=== PATIENT | female | born 1995 | race Two or more races ===

== ENCOUNTER 2021-12-22 15:05 | Emergency (ER) | payer OTHER ==
[~2021-12-22] VITALS: Ht 160 cm; Wt 54.4 kg
[2021-12-22] MEDS ORDERED: NITROFURANTOIN100 MG PO (19:35)
== END 2021-12-22 19:50 | disposition home or self-care (01) ==
LOC: ER 15:05
DX: N39.0 Urinary tract infection, site not specified (principal); Z20.822 Contact with and (suspected) exposure to COVID-19

== ENCOUNTER 2023-02-05 19:07 | Emergency (ER) | payer OTHER ==
[~2023-02-05] VITALS: Ht 160 cm; Wt 54.4 kg
[~2023-02-05 19:07] MED LIST: NITROFURANTOIN100 MG PO
== END 2023-02-05 21:09 | disposition home or self-care (01) ==
LOC: ER 19:07
DX: N39.0 Urinary tract infection, site not specified (principal)

== ENCOUNTER 2024-04-15 18:20 | Emergency (ER) | payer OTHER ==
[~2024-04-15] VITALS: Ht 160 cm; Wt 61.2 kg
[~2024-04-15 18:20] MED LIST changes: +QC TUSSIN DM L118 ML PO; +SALINE NASAL SP88 ML NASAL; +ZYRTEC10 MG PO
[2024-04-15] MEDS ORDERED: KETOROLAC TROMETHAMINE 15 MG VIAL IM STA (20:54)
[2024-04-15 21:09] LABS: HEMATOCRIT 36.6 % (36.0-45.00); HEMOGLOBIN 11.9 g/dL (12.0-15.00); MEAN CELL VOLUME 90.1 fL (80.00-100.00); MEAN CORPUSCULAR HEMOGLOBIN 29.3 pg (27.00-32.0); MEAN CORPUSCULAR HGB CONC 32.5 g/dl (32.0-36.0); PLATELET COUNT 365 K/uL (150-450); RED BLOOD COUNT 4.06 M/uL (4.00-6.00)
[2024-04-15 22:51] LABS: URINE APPEARANCE Clear; URINE BILIRRUBIN Negative (NEGATIVE); URINE BLOOD Negative; URINE COLOR Yellow; URINE GLUCOSE Negative (NEGATIVE); URINE KETONE Trace (NEGATIVE); URINE LEUKOCYTE Trace; URINE NITRATE Negative; URINE PROTEIN Negative (NEGATIVE); URINE UROBILINOGEN 0.2 E.U./dl
[2024-04-15 22:55] LABS: URINE BACTERIA 134.8 uL (0.0-1933); URINE EPITHELIAL CELLS 4.9 uL (0.0-38.8); URINE WBC 27.4 uL (0.0-23.2)
[2024-04-15 22:56] LABS: URINE RBC 0.1 uL (0.0-20.8)
[2024-04-15] MEDS ORDERED: KETO10TA2 PO (23:02)
== END 2024-04-15 23:03 | disposition home or self-care (01) ==
LOC: ER 18:22
PROVIDERS: Emergency Medicine
DX: N23 Unspecified renal colic (principal)
CPT/HCPCS: 36415; 76770; 96372; 99284; J1885

== ENCOUNTER 2024-12-27 15:56 | Emergency (ER) | payer OTHER ==
[~2024-12-27] VITALS: Ht 160 cm; Wt 58.1 kg
[~2024-12-27 15:56] MED LIST changes: +KETO10TA2 PO
[2024-12-27 16:58] LABS: BASO % 0.7 % (0.1-1.2); EOS # 0.23 (0.04-0.54); EOS % 4.1 % (0.7-7.0); LYMPH # 1.84 (1.18-3.74); LYMPH % 32.9 % (19.3-53.1); MEAN PLATELET VOLUME 9.40 fl (9.4-12.4); MONO # 0.87 (0.24-0.82); NEUT # 2.62 (1.56-6.13); NEUT % 46.8 % (34.0-71.1); RED CELL DISTRIBUTION WIDTH 14.5 % (11.6-14.4)
[2024-12-27 16:59] LABS: MONO % 15.5 % (4.7-12.5)
[2024-12-27 17:54] LABS: COVID-19 AG NEGATIVE (NEGATIVE)
[2024-12-27] MEDS ORDERED: ACETAMINOPHEN500 M1 PO (19:40)
[2024-12-27] MEDS ORDERED: INTESTINEX680 M1 PO (19:40)
[2024-12-27] MEDS ORDERED: GILTUSS COUGH-118 M1 PO (19:40)
== END 2024-12-27 20:14 | disposition home or self-care (01) ==
LOC: ER 15:56
PROVIDERS: Preventive Medicine Public Health & General Preventive Medicine
DX: B34.9 Viral infection, unspecified (principal); Z20.822 Contact with and (suspected) exposure to COVID-19